=== PATIENT | female | born 1965 | race Caucasian/White ===

== ENCOUNTER 2018-07-04 11:37 | Emergency (ER) | payer OTHER | END 2018-07-04 15:00 | disposition home or self-care (01) | LOC: FTE 11:37 | DX: H92.21 Otorrhagia, right ear (principal) | CPT/HCPCS: 99282; Z7502 ==

== ENCOUNTER 2018-11-03 07:00 | Day surgery (SDC) | payer OTHER ==
[2018-11-03] MEDS ORDERED: LIDOCAINE 2% (SDV) 5 ML INJ ×2 (09:00→09:15)
[2018-11-03] MEDS ORDERED: PROPOFOL 40 ML (09:00)
[2018-11-03] MEDS ORDERED: MIDAZOLAM 1 MG/ML 2 ML INJ (09:00)
[2018-11-03] MEDS ORDERED: PROPOFOL 20 ML (09:15)
[2018-11-03] MEDS ORDERED: ETOMIDATE 20 MG INJ (09:15)
[2018-11-03] MEDS ORDERED: LORAZEPAM 2 MG INJ IV (09:30)
[2018-11-03] MEDS ORDERED: ONDANSETRON 4 MG INJ IV (09:30)
== END 2018-11-03 15:31 | disposition home or self-care (01) ==
LOC: GIL 07:00
DX: Z12.11 Encounter for screening for malignant neoplasm of colon (principal); D12.5 Benign neoplasm of sigmoid colon; K64.8 Other hemorrhoids; K21.9 Gastro-esophageal reflux disease without esophagitis; K29.60 Other gastritis without bleeding
CPT/HCPCS: 43239; 88305